=== PATIENT | male | born 1990 | race Caucasian/White ===

== ENCOUNTER 2020-01-22 16:31 | Emergency (ER) | payer OTHER, SELFPAY ==
[2020-01-22 17:01] VITALS: BP 138/82; PULSE 96; RESP 18; TEMP 37.4; O2SAT 97
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
[2020-01-22] MEDS: KETOROLAC (*BKC) 60 MG/2 ML VIAL IM (17:47)
[2020-01-22 18:15] VITALS: BP 116/72; PULSE 75; RESP 16; TEMP 36.6; O2SAT 97
== END 2020-01-22 18:16 | disposition home or self-care (01) ==
PROVIDERS: Emergency Provider Emergency Medicine
DX: S39.012A Strain of muscle, fascia and tendon of lower back, initial encounter (principal); S16.1XXA Strain of muscle, fascia and tendon at neck level, initial encounter; F17.210 Nicotine dependence, cigarettes, uncomplicated; V43.52XA Car driver injured in collision with other type car in traffic accident, initial encounter
CPT/HCPCS: 96372; 99283; J1885; L0140

== ENCOUNTER 2022-10-15 09:50 | Emergency (ER) | payer OTHER, SELFPAY ==
--- NOTE | ~2022-10-15 | XR_ITS ---
EXAMINATION: XR chest 2V DATE: 10/15/2022 10:32 INDICATION: Shortness of breath. Cough. TECHNIQUE: Frontal and lateral views of the chest were obtained. COMPARISON: None. FINDINGS: The chest demonstrates clear lungs without pneumonia, pleural effusion, or pneumothorax. Th e heart size is normal. IMPRESSION: 1. No acute cardiopulmonary disease. Reviewed, dictated and finalized at location A. [employer]
[2022-10-15 10:16] VITALS: BP 136/84; PULSE 95; RESP 18; TEMP 37.1; O2SAT 95
--- NOTE | 2022-10-15 10:17 | ED.SOB ---
HPI - SOB/Dyspnea General Chief Complaint: Upper Respiratory Infection Stated Complaint: congestion Time Seen by Provider: 10/15/22 10:01 Source: patient Mode of arrival: ambulatory Limitations: no limitations History of Present Illness HPI Narrative: Nazario is a 32-year-old male patient presenting to the clinic today with complaints of shortness of breath and productive cough. He reports symptoms began this morning. States he noticed when he woke up this morning that he was short of breath and breathing more rapidly. States that he did cough up some red phlegm this morning. Denies any history of COPD, asthma, or congestive heart failure. He is a current smoker. He denies any chest pain Related Data Allergies Allergy/AdvReac Type Severity Reaction Status Date / Time No Known Allergies Allergy Verified 10/15/22 10:21 Review of Systems Review of Systems: Pertinent positives per HPI. Patient denies any fever, chills, rash, headache, visual changes, dizziness, chest pain, palpitations, nausea, vomiting, diarrhea, constipation, abdominal pain, or any urinary issues. [facility] Social History Social History Smoking status: Current every day smoker Gender identity (if verbalized by the patient): Male Comments At the time of my signature, I reviewed and agree with the nursing past medical, surgical, social, and family history. There is no relevant family history pertinent to the patient complaint. Exam Narrative: General: Well-developed, morbidly obese, in no apparent distress Head: Normocephalic, atraumatic Eyes: Pupils equally round and reactive to light bilaterally, EOM intact, sclera and conjunctive clear, no discharge, lids normal Ears: TMs intact and clear, ear canals clear, no drainage, grossly hearing normal. Nose: Nares patent, no discharge, no inflammation, no sinus tenderness. Mouth: Oral pharynx without lesions or masses, good dentition, MMM. Neck: Supple, trachea midline, no enlargement of anterior or posterior cervical nodes, no thyroid masses or goiter palpable. Cardio: Regular rate and rhythm, s1 and s2 normal, no murmur appreciated. Resp: Lung sounds tight with faint left upper lobe expiratory wheezing, no rhonchi, rales, or rubs Course Course Emergency Course: Portions of this record may have been created with voice recognition software. Level of Care: Express Care Visit Vital Signs Vital signs: Vital Signs Temperature 37.1 C 10/15/22 10:16 Pulse Rate 95 10/15/22 10:16 Respiratory Rate 18 10/15/22 10:16 Blood Pressure 136/84 10/15/22 10:16 Pulse Oximetry 95 10/15/22 10:16 Oxygen Delivery Room Air 10/15/22 10:16 Temperature 37.1 C 10/15/22 10:16 Pulse Rate 95 10/15/22 10:16 Respiratory Rate 18 10/15/22 10:16 Blood Pressure 136/84 10/15/22 10:16 Pulse Oximetry 95 10/15/22 10:16 Oxygen Delivery Room Air 10/15/22 10:16 Vital signs reviewed MDM - SOB/Dyspnea MDM Narrative Medical decision making narrative: At the time of visit patient is resting on the exam table. SpO2 was initially 95% on room air. Lung sounds are tight with that measure flow. Faint wheezing heard. X-ray was performed was negative for any sign of pneumonia, mass, or note of acute cardiopulmonary process. He does not have any lower edema. Is a current smoker. COVID test was negative. I suspect patient has bronchitis. DuoNeb hand-held treatment was given in the clinic and this improved patient aeration in the lungs and he noted improvement and breathing however his SpO2 was 93%. Supportive measures were discussed with the patient he voiced understanding discharge instructions. Prescription for prednisone albuterol inhaler was sent to the pharmacy. Differential Diagnosis Differential diagnosis: Likely acute exacerbation of chronic obstructive airways disease, congestive heart failure, community acquired pneumonia, asthma
[2022-10-15] MEDS: ALBUTEROL SULFATE NEB 2.5 MG/3 ML INH INHALATION (10:38)
[2022-10-15] MEDS: IPRATROPIUM BR 0.02% INH SOLN 0.5 MG/2.5 ML VIAL INHALATION (10:39)
[2022-10-15 10:40] VITALS: O2SAT 95
[2022-10-15 11:00] VITALS: PULSE 97; O2SAT 92
== END 2022-10-15 11:00 | disposition home or self-care (01) ==
PROVIDERS: Emergency Provider Nurse Practitioner Family
DX: J40 Bronchitis, not specified as acute or chronic (principal); F17.200 Nicotine dependence, unspecified, uncomplicated; Z20.822 Contact with and (suspected) exposure to COVID-19
CPT/HCPCS: 71046; 87426; 94640; 99213; C9803; G0463

== ENCOUNTER 2023-02-10 01:16 | Emergency (ER) | payer OTHER, SELFPAY ==
[2023-02-10 01:18] VITALS: BP 146/100; PULSE 98; RESP 18; TEMP 36.3; O2SAT 99
--- NOTE | 2023-02-10 01:28 | ED.SKABFB ---
HPI - Skin/Abscess/Foreign Bdy General Chief complaint: Skin/Abscess/Foreign Body Stated complaint: spider bite? Time Seen by Provider: 02/10/23 01:22 History of Present Illness HPI narrative: 32-year-old male here for evaluation of a lesion to his left posterior shoulder that he first noticed about 7 hours ago. Patient states that he was outside all day and he noticed the lesion develop when he got home. Since then it has grown in size, become hot and tender. Denies any known trigger for the lesion. He denies any fevers, chills, nausea or vomiting. He is not immunocompromised. Related Data Allergies Allergy/AdvReac Type Severity Reaction Status Date / Time No Known Allergies Allergy Verified 02/10/23 01:16 Review of Systems Review of Systems: Gen.: Denies fevers or chills Eyes: Denies eye pain or visual change ENT: Denies congestion Respiratory: Denies shortness of breath or cough CV: Denies chest pain or palpitations GI: Denies abdominal pain nausea, emesis or diarrhea denies burning, urgency, frequency or hematuria Musculoskeletal: Denies back pain or muscle pain Neuro: Denies numbness, tingling, weakness or focal weakness Skin: Lesion to the left shoulder Except as documented, all other systems reviewed and negative [facility] Social History Social History Smoking status: Current every day smoker Gender identity (if verbalized by the patient): Male Exam Narrative: Gen: Alert, oriented, no acute distress Eyes: EOMI, no icterus Pulm: Respirations even and unlabored, symmetric thorax expansion, no audible stridor or visible cyanosis CV: Regular rate per telemetry GI: No distension, no voluntary/involuntary guarding Neuro: AOx4, moves all extremities without apparent difficulty or weakness, follows commands Skin: There is a 0.5 cm circular area of erythema and fluctuance to the left posterior shoulder that is tender to palpation and warm to touch without active or spontaneous drainage. There is no surrounding erythema. Psych: Normal mood/affect, insight/judgement good, adequate fund of knowledge, recent/remote memory intact Course Vital Signs Vital signs: Vital Signs Temperature 97.4 F L 02/10/23 01:18 Pulse Rate 98 02/10/23 01:18 Respiratory Rate 18 02/10/23 01:18 Blood Pressure 146/100 H 02/10/23 01:18 Pulse Oximetry 99 02/10/23 01:18 Oxygen Delivery Room Air 02/10/23 01:18 Temperature 97.4 F L 02/10/23 01:18 Pulse Rate 98 02/10/23 01:18 Respiratory Rate 18 02/10/23 01:18 Blood Pressure 146/100 H 02/10/23 01:18 Pulse Oximetry 99 02/10/23 01:18 Oxygen Delivery Room Air 02/10/23 01:18 Procedures Abscess I/D back: Date of Incision: 02/10/23 Time of Incision: 01:53 Side (if applicable): left Local Anesthetic: lidocaine 1% Amount of anesthesia used (mL): 1 Technique: incised with #11 blade and probed loculations Amount of fluid expressed (mL): 1 Irrigation: No Packing used?: none I&D Results: Pus and Blood MDM - Skin/Abscess/Foreign Bdy MDM Narrative Medical decision making narrative: 32-year-old male here for evaluation of an abscess to his left upper back that was drained in the ED with return of pus and blood. No systemic symptoms. he will be sent home with doxycycline. Precautions and he voiced understanding. Discharge Plan Discharge Clinical Impression: Abscess Patient Disposition: Home, Self-Care Condition: Stable Instructions: Antibiotic Form, Abscess (ED) Additional Instructions: You had an abscess drained today. Please take antibiotics as directed. You may use warm compresses on the area to help encourage drainage. Return to the ED for fevers, nausea, vomiting, other concerning symptoms. Prescriptions: New doxycycline hyclate 100 mg capsule 100 mg PO BID Qty: 10 0RF No Action prednison
== END 2023-02-10 01:55 | disposition home or self-care (01) ==
LOC: ANHED 01:50
PROVIDERS: Emergency Provider Physician Assistant
DX: L02.414 Cutaneous abscess of left upper limb (principal); F17.210 Nicotine dependence, cigarettes, uncomplicated
CPT/HCPCS: 10060; 99283

== ENCOUNTER 2023-04-26 09:05 | Emergency (ER) | payer OTHER, SELFPAY ==
--- NOTE | ~2023-04-26 | XR_ITS ---
EXAMINATION: [id number] DATE: 04/26/2023 09:39 INDICATION: Left chest injury. TECHNIQUE: A frontal view of the chest and 2 views on 4 radiographs of the left ribs were obtained. COMPARISON: Chest 2 views 10/15/2022 FINDINGS: There is no pneumonia, pleural effusion, or pneumothorax. The heart size is normal. There i s a fracture of left eighth rib. IMPRESSION: 1. Left eighth rib fracture. Reviewed, dictated and finalized at location A.
[2023-04-26 09:21] VITALS: BP 113/92; PULSE 85; RESP 16; TEMP 36.5; O2SAT 97
--- NOTE | 2023-04-26 09:41 | ED.GENADULT ---
HPI - General Adult General Chief complaint: Extremity Injury, Upper Stated complaint: LT Side Pain Due to Fall Time Seen by Provider: 04/26/23 09:42 Source: patient, RN notes reviewed and old records reviewed Mode of arrival: ambulatory Limitations: no limitations History of Present Illness HPI narrative: 32-year-old male presents to the [facility] with complaints of left rib pain. Patient states that he missed a step yesterday, fell on to his left side. Denies hitting head. No loss of consciousness. No midline tenderness. No arm pain. No hip pain. Patient is a smoker Patient reports increased pain when he takes a deep breath. Onset (ago): day(s) (1) Related Data Home Medications Medication Instructions Recorded Confirmed No Home Medications 04/26/23 04/26/23 Allergies Allergy/AdvReac Type Severity Reaction Status Date / Time No Known Allergies Allergy Verified 04/26/23 09:21 Review of Systems Review of Systems: All systems reviewed & are unremarkable except as noted in HPI and below Constitutional: Constitutional: Reports no additional constitutional complaints Eyes: Eyes: Reports no additional eye complaints ENT: Reports system reviewed and no additional complaints, except as documented Cardiovascular: Cardiovascular: Reports no additional cardiovascular complaints, Denies chest pain and Denies dyspnea Respiratory: Respiratory: Reports no additional respiratory complaints, Denies chest congestion, Denies cough and Denies dyspnea Gastrointestinal: Gastrointestinal: Reports no additional gastrointestinal complaints, Denies abdominal pain, Denies nausea and Denies vomiting Musculoskeletal: Musculoskeletal: Reports as per HPI Integumentary/Breasts: Skin/Breast: Reports system reviewed and no additional complaints, except as docu Neurologic: Reports system reviewed and no additional complaints, except as documented Psychiatric: Psychiatric: Reports no additional psychiatric complaints Allergic/Immunologic: Allergic/Immunologic: Reports no additional allergic/immunologic complaints [facility] Social History Social History Smoking status: Current every day smoker Gender identity (if verbalized by the patient): Male Comments At the time of my signature, I reviewed and agree with the nursing past medical, surgical, social, and family history. There is no relevant family history pertinent to the patient complaint. Exam Const: General: cooperative, healthy appearing, comfortable, no acute distress, well developed, alert and well nourished Nutritional Appearance: well nourished and obese Orientation/consciousness: patient oriented x3 Limitations: no limitations HENMT: Head: normal to inspection Ears: hearing grossly normal bilaterally and external ears normal Face/Nose/Sinus: Normal external nose present, Normal nares present, Normal nasal mucous membranes and turbinates present and normal facial exam Face and sinus: normal facial exam Eyes: General: appearance normal, both eyes and all related structures Alignment and Position: alignment normal Periorbital: periorbital findings normal Pupils: Equal, round and reactive pupils present EOM: EOMs intact bilaterally Neck: Neck: normal visual inspection, full ROM, no lymphadenopathy and no meningeal signs Chest: Chest palpation & inspection: normal inspection of the chest Resp: Effort & Inspection: normal respiratory effort and able to speak in complete sentences Auscultation: clear to auscultation bilaterally, no crackles, no rales, no rhonchi and no wheezes Cardio: Rate: regular rate Rhythm: regular rhythm GI: GI Palp: No abdominal tenderness Back/Spine/Pelvis: Back: no CVA tenderness, No erythema, No warmth, No ecchymosis and No back tenderness Cervical Spine: cervical ROM normal Thoracic/Lumbar Spine: No thoracic spinal tenderness and No lumbar spinal tenderness Other: Patient reports
== END 2023-04-26 10:05 | disposition home or self-care (01) ==
PROVIDERS: Emergency Provider Nurse Practitioner
DX: S22.32XA Fracture of one rib, left side, initial encounter for closed fracture (principal); W10.9XXA Fall (on) (from) unspecified stairs and steps, initial encounter; F17.200 Nicotine dependence, unspecified, uncomplicated
CPT/HCPCS: 71101; 99213; G0463

== ENCOUNTER 2023-09-03 14:49 | Emergency (ER) | payer OTHER, SELFPAY ==
--- NOTE | 2023-09-03 14:59 | ED.URI ---
HPI - URI/Sore Throat General Chief Complaint: Upper Respiratory Infection Stated Complaint: sob,cough Source: patient, RN notes reviewed and old records reviewed Mode of arrival: ambulatory Limitations: no limitations History of Present Illness HPI Narrative: 33 year male patient presents to [facility] with complaint of productive cough, congestion for 3 weeks. Patient states taking [id number] medications with no relief. Patient denies chest pain, shortness of breath, weakness, dizziness, fever. MD elicited complaint: cough and nasal congestion Onset (ago): week(s) (3) Consistency: constant Severity: moderate Related Data Allergies Allergy/AdvReac Type Severity Reaction Status Date / Time No Known Allergies Allergy Verified 09/03/23 14:56 Review of Systems Constitutional: Constitutional: Reports no additional constitutional complaints, Denies body ache(s), Denies chills, Denies fatigue, Denies fever(s) and Denies headache(s) Eyes: Eyes: Reports no additional eye complaints and Denies blurry vision ENT: Reports system reviewed and no additional complaints, except as documented, Denies vertigo, Denies dizziness, Denies ear discharge, Denies otalgia, Denies facial pain, Denies headache(s), Reports nasal congestion, Reports nasal discharge, Denies sinus pain, Reports sinus pressure and Denies sore throat Cardiovascular: Cardiovascular: Reports no additional cardiovascular complaints, Denies chest pain, Denies chest pain at rest, Denies rapid heart rate and Denies dyspnea Respiratory: Respiratory: Reports no additional respiratory complaints, Reports chest congestion, Reports cough, Reports excessive phlegm production ( thick yellow), Denies pain on inspiration, Denies pain with cough and Denies dyspnea Gastrointestinal: Gastrointestinal: Denies abdominal pain, Denies diarrhea, Denies nausea and Denies vomiting Integumentary/Breasts: Skin/Breast: Denies rash Neurologic: Reports system reviewed and no additional complaints, except as documented, Denies vertigo, Denies dizziness and Denies headache(s) Endocrine: Endocrine: Denies fatigue [facility] Social History Social History Smoking status: Current every day smoker Gender identity (if verbalized by the patient): Male Comments At the time of my signature, I reviewed and agree with the nursing past medical, surgical, social, and family history. There is no relevant family history pertinent to the patient complaint. Exam Const: General: cooperative, healthy appearing, no acute distress and well nourished Nutritional Appearance: well nourished Orientation/consciousness: patient oriented x3 Limitations: no limitations HENMT: Head: normal to inspection and normocephalic Ears: external ears normal, TM's normal bilaterally, mastoids normal and Abnormal EAC present Face/Nose/Sinus: normal facial exam Face and sinus: normal facial exam Mouth: Yes Normal oral and palatal mucosa present, Yes oropharynx normal and Yes moist mucous membranes Throat: posterior oropharynx normal, tonsils normal, uvula midline and no uvular edema Eyes: General: appearance normal, both eyes and all related structures Sclera: sclerae normal Pupils: Equal, round and reactive pupils present Resp: Effort & Inspection: normal respiratory effort, able to speak in complete sentences, no audible wheezes, no cough, no respiratory distress and no retractions Auscultation: clear to auscultation bilaterally, no crackles, no rales, no rhonchi, no wheezes and diminished lung sounds on the left in the lower lung barillas Cardio: Rate: regular rate Rhythm: regular rhythm Skin: General skin exam: normal color and no rashes or lesions noted Neuro: General: patient oriented x3 Cranial nerves: Yes Equal, round and reactive pupils present Psych: Appearance: grossly normal Mental Status: mental status grossly normal Speech and movement: Normal speech and m
[2023-09-03 15:01] VITALS: BP 150/73; PULSE 107; RESP 24; TEMP 36.3; O2SAT 94
== END 2023-09-03 15:16 | disposition home or self-care (01) ==
PROVIDERS: Emergency Provider Registered Nurse
DX: J20.9 Acute bronchitis, unspecified (principal); F17.200 Nicotine dependence, unspecified, uncomplicated
CPT/HCPCS: 99213; G0463

== ENCOUNTER 2025-05-18 16:01 | Emergency (ER) | payer OTHER, SELFPAY ==
--- NOTE | ~2025-05-18 | XR_ITS ---
EXAMINATION: XR knee LT min 4V DATE: 05/18/2025 16:29 INDICATION: Left knee pain post injury TECHNIQUE: Anteroposterior, 2 oblique and crosstable lateral views of the left knee were obtained COMPARISON: None. FINDINGS: Alignment is normal. No fracture. Joint spaces appear normal on nonweightbearing imaging. Small ovoid bone island along the anterior metaphyseal region of the distal left femur. No joint effusion/layering lipohemarthrosis. Soft tissues are unremarkable. IMPRESSION: 1. No left knee joint effusion or acute osseous abnormality.. Reviewed, dictated and finalized at location A.
--- NOTE | ~2025-05-18 | XR_ITS ---
EXAMINATION: XR ankle LT min 3V, 05/18/2025 16:15 CDT HISTORY: medial and lateral ankle pain/injury COMPARISON: No comparisons available. Findings: No acute fracture or malalignment. No significant degenerative changes. Soft tissues unremarkable. Impression: No acute fracture or malalignment. Reviewed, dictated and finalized at location P. Impression: No acute fracture or malalignment.
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
[2025-05-18 16:11] VITALS: BP 148/82; PULSE 98; RESP 18; TEMP 36.4; O2SAT 94
== END 2025-05-18 16:49 | disposition home or self-care (01) ==
PROVIDERS: Emergency Provider Nurse Practitioner Family
DX: S80.02XA Contusion of left knee, initial encounter (principal); S93.402A Sprain of unspecified ligament of left ankle, initial encounter; S80.212A Abrasion, left knee, initial encounter; V18.4XXA Pedal cycle driver injured in noncollision transport accident in traffic accident, initial encounter; F17.200 Nicotine dependence, unspecified, uncomplicated
CPT/HCPCS: 73564; 73610; 99214; G0463